=== PATIENT | female | born 1995 | race African-American/Black ===

== ENCOUNTER 2023-02-01 12:01 | Emergency (ER) | payer MEDICAID, SELFPAY ==
--- NOTE | ~2023-02-01 | US_ITS ---
EXAMINATION: US ABDOMEN LIMITED CLINICAL INFORMATION: Right upper quadrant pain.. COMPARISON: None available. TECHNIQUE: Real-time imaging of the right upper quadrant abdominal viscera. FINDINGS: PANCREAS: Normal. LIVER: Normal. The liver is normal in size. The liver contour is normal. Parenchymal echogenicity is normal. No focal hepatic lesion. There is no intrahepatic biliary duct dilatation seen. GALLBLADDER: Normal. The gallbladder is physiologically distended without evidence of stones, sludge, polyps, wall thickening or pericholecystic fluid. COMMON BILE DUCT: Normal in caliber measuring 0.17 cm in diameter. RIGHT KIDNEY: Normal. No hydronephrosis. No renal calculi or focal parenchymal lesions. The kidney measures 9.9 cm in maximum dimension. FREE FLUID: None. US/US abdomen limited IMPRESSION: No gallstones or biliary dilatation.
[2023-02-01 12:08] VITALS: BP 108/70; PULSE 56; O2SAT 99
[2023-02-01 13:20] VITALS: BP 143/80; PULSE 84; RESP 16; TEMP 36.7; O2SAT 100; BMI 35.1
--- NOTE | 2023-02-01 13:21 | ED.GENADULT ---
HPI - General Adult General Chief complaint: Abdominal Pain Stated complaint: ABD PAIN HALF HOUR S/P HOT SAUCE INTAKE Time Seen by Provider: 02/01/23 19:48 Source: patient and RN notes reviewed Mode of arrival: ambulatory Limitations: no limitations History of Present Illness [facility] narrative: This is a 27-year-old female, with no known past medical history, presenting to the emergency department with complaints of epigastric pain since today. Patient states that after eating a very spicy meal, she developed a burning sensation in her epigastrium. She states that the pain has been constant and nonradiating. She reports associated nausea. No chest pain or shortness of breath. Denies history of similar symptoms before. She states that her diet consists of very spicy foods on a daily basis. Denies fevers, chills, diarrhea or constipation. No other complaints or concerns at this time. MD complaint: Epigastric pain Onset (ago): day(s) Radiation: non-radiation Severity: moderate Quality: burning Pain Consistency: constant Relieving factors: none Exacerbating factors: none Associated symptoms: denies other symptoms Treatments prior to arrival: none Related Data Previous Rx's Medication Instructions Recorded aluminum-mag hydroxide-simethicone 10 ml PO QID PRN indigestion #300 02/01/23 200 mg-200 mg-20 mg/5 mL oral susp mL (Maalox Advanced) Allergies Allergy/AdvReac Type Severity Reaction Status Date / Time No Known Allergies Allergy Verified 02/01/23 13:22 Review of Systems Review of Systems: Yes all other systems are reviewed and are negative Constitutional: Constitutional: Reports as per [facility] Social History Social History Advance Directives: No Advance Directives Information Provided: No Physical Exam ED Vital Signs: Vital Signs - 24 hr 02/01/23 13:20 Temperature 98.0 F Pulse Rate 84 Respiratory Rate 16 Blood Pressure 143/80 H Pulse Oximetry 100 Oxygen Delivery Method Room Air BMI result Body Mass Index 35.1 Const General: cooperative, comfortable and no acute distress Orientation/consciousness: patient oriented x3 Limitations: no limitations HENMT Head: Yes normal to inspection, Yes normocephalic and Yes atraumatic Ears: hearing grossly normal bilaterally General nose exam: Normal external nose present Face and sinus: Yes normal facial exam Mouth: Normal oral and palatal mucosa present, oropharynx normal and moist mucous membranes Throat: Yes posterior oropharynx normal Eyes General: appearance normal, both eyes and all related structures Eyelids: Yes eyelids normal Conjunctivae: conjunctivae normal Sclerae: sclerae normal Pupils: Equal, round and reactive pupils present EOM: EOMs intact bilaterally Neck Neck: Yes normal visual inspection, Yes full ROM and Yes no lymphadenopathy Lymphatic: no lymphadenopathy noted Chest Chest palpation & inspection: normal inspection of the chest Resp Effort & Inspection: normal respiratory effort and able to speak in complete sentences Auscultation: clear to auscultation bilaterally, no crackles, no rales, no rhonchi and no wheezes Cardio Rate: regular rate Rhythm: regular rhythm Heart sounds: S1 normal heart sound present and S2 normal heart sound present GI Other: Abdomen is soft, with mild tenderness to palpation in the epigastrium. No rebound or guarding. Normoactive bowel sounds present in all 4 quadrants. Inspection: Yes normal to inspection Skin General skin exam: no rashes or lesions noted Trauma: no lacerations or abrasions Wounds: no wounds Neuro General: patient oriented x3 and moves all extremities Cranial nerves: Yes Equal, round and reactive pupils present Extrem General: Yes normal to inspection Right upper extremity: normal to inspection Left upper extremity: normal to inspection Right lower extremity: normal to inspection Left lower extremity: normal to inspection Course Course Course Narrative: This is an RME: Additional HPI, ROS, PE not included below will be deferred to primary provider. 27 yo female presents w/ RUQ/epigastric pain X few hours s/p eating hot sauce. Reports her stomach pain feels like contractions reports a/c nausea. Plan- labs, ruq us Medications Administered Discontinued Medications Generic Name Dose Route Start Last Admin Trade Name Antony PRN Reason Stop Dose Admin Al Hydroxide/Mg Hydroxide 30 ml 02/01/23 20:05 02/01/23 20:21 Magnesium Hydrox/Alum Hydrox 30 Ml Oral.Susp PO 02/01/23 20:06 30 ml ONCE ONE Administration Lidocaine HCl 15 ml 02/01/23 20:05 02/01/23 20:22 Lidocaine Hcl Viscous 2 % 15 Ml Solution MUCOUS MEM 02/01/23 20:06 15 ml ONCE ONE Administration Medical Decision Making Medical Decision Making MDM Narrative: 27-year-old female presenting to the emergency department for evaluation of epigastric burning sensation since eating a spicy meal this afternoon. She states that the pain has been constant does not radiate. No shortness of breath or chest pain. On arrival, patient mildly hypertensive at 143/80. All other vital signs within normal limits. Labs were obtained, no leukocytosis, stable H&H, chemistry within normal limits. Abdomen ultrasound is negative. Differential diagnoses include gastritis, gastroenteritis, cholecystitis, cholangitis. Given workup today, symptoms consistent with gastritis, patient medicated with GI cocktail however immediately after she states that she had to go as her ride was going to leave her. Educated the importance of avoiding spicy and greasy food over the next month. Given prescription for Maalox. Given return precautions. Patient understands and agrees with plan. Patient stable for discharge. Differential Diagnosis Differential Diagnoses: The differential diagnosis associated with the presentation includes See above Admission/Observation Consideration of admission/observation: Escalation of care including admission/observation considered Patient would have been admitted to the hospital had her work up had any findings where hospital admission was appropriate and her clinical presentation warranted hospital admission. Lab Data MDM Lab Attestation statement: I reviewed the patient's lab results. 02/01/23 13:39 02/01/23 13:39 Labs: Lab Results 02/01/23 Range/Units 13:39 WBC 7.1 (4.8-10.8) X10*3/uL RBC 4.27 (4.20-5.50) X10*6/uL Hgb 12.2 (12.0-16.0) g/dl Hct 36.7 L (37.0-47.0) % MCV 85.9 (80.0-98.0) fL MCH 28.6 (27.0-33.0) pg MCHC 33.2 (31.0-35.0) g/dl RDW 13.4 (11.0-16.0) % Plt Count 226 (160-400) X10*3/uL MPV 10.5 (9.4-12.3) fL Immature Gran % (Auto) 0.3 (0.0-0.4) % Neut % (Auto) 66.5 (45-73) % Lymph % (Auto) 25.8 (20-40) % [place] % (Auto) 4.4 (2-11) % Eos % (Auto) 2.4 (0-4) % Baso % (Auto) 0.6 (0-2) % Lymph # (Auto) 1.8 (1.2-4.9) X10*3/uL [place] # (Auto) 0.3 (0.1-1.2) X10*3/uL Eos # (Auto) 0.2 (0.0-0.4) X10*3/uL Baso # (Auto) 0.0 (0.0-0.2) X10*3/uL Abs Immat Gran (auto) 0.02 (0.00-0.03) X10*3/uL Absolute Neuts (auto) 4.7 (2.0-8.3) x10*3/uL Absolute Nucleated RBC 0.000 (0.0-0.012) X10*3/uL Nucleated RBC % (auto) 0.0 (0.0-0.2) /100WBC Sodium 139 (135-145) mmol/L Potassium 3.8 (3.3-5.1) mmol/L Chloride 108 (96-108) mmol/L Carbon Dioxide 21 L (22-29) mmol/L Anion Gap 14 (12-20) BUN 11 (9-16) mg/dL Creatinine 0.73 (0.5-1.4) mg/dL Estim Creat Clear Calc 118.6 Estimated GFR > 60 Random Glucose 84 (60-115) mg/dL Calcium 9.8 (8.4-10.2) mg/dL Magnesium 2.3 (1.6-2.6) mg/dL Total Bilirubin 0.4 (0.0-1.0) mg/dL AST 18 (5-31) U/L ALT 13 (0-31) U/L Alkaline Phosphatase 55 (39-117) U/L Total Protein 7.8 (6.5-8.0) g/dL Albumin 4.5 (3.5-5.0) g/dL Lipase 51 (8-78) U/L Beta HCG, Quant < 2 mIU/mL Radiology Impression Discussion of test interpretation with radiology: I have reviewed the radiologist's reading. Radiologist Impression: EXAMINATION: US ABDOMEN LIMITED CLINICAL INFORMATION: Right upper quadrant pain.. COMPARISON: None available. TECHNIQUE: Real-time imaging of the right upper quadrant abdominal viscera. FINDINGS: PANCREAS: Normal. LIVER: Normal. The liver is normal in size. The liver contour is normal. Parenchymal echogenicity is normal. No focal hepatic lesion. There is no intrahepatic biliary duct dilatation seen. GALLBLADDER: Normal. The gallbladder is physiologically distended without evidence of stones, sludge, polyps, wall thickening or pericholecystic fluid. COMMON BILE DUCT: Normal in caliber measuring 0.17 cm in diameter. RIGHT KIDNEY: Normal. No hydronephrosis. No renal calculi or focal parenchymal lesions. The kidney measures 9.9 cm in maximum dimension. FREE FLUID: None. US/US abdomen limited IMPRESSION: No gallstones or biliary dilatation. Dictated By: Zackary Osullivan Discharge Plan Discharge Clinical Impression: Gastritis Patient Disposition: Home, Self-Care Instructions: Gastritis (ED), Diet for Stomach Ulcers and Gastritis (ED) Additional Instructions: You likely have something called gastritis. This is inflammation of your stomach lining. This can be caused by eating spicy foods. Please take to a bland diet, a diet with dose, rice, applesauce, bananas, can help with your symptoms. Drink plenty of fluids get plenty of rest. Follow-up with your primary care physician. If any new or worsening symptoms occur including but not limited to chest pain, shortness of breath, worsening abdominal pain, nausea, vomiting or diarrhea, please return for re-evaluation. Prescriptions: New alum-mag hydroxide-simeth [Maalox Advanced] 200-200-20 mg/5 mL suspension 10 ml PO QID PRN (Reason: indigestion) Qty: 300 0RF Rx Instructions: administer between meals and at bedtime Stand Alone Forms: Work/School Release
[2023-02-01 13:47] LABS: MANUAL DIFF FLAG NO
[2023-02-01 13:53] LABS: Basophils Percent Auto 0.6 % (0-2); Eosinophils Absolute Auto 0.2 X10*3/uL (0.0-0.4); Eosinophils Percent Auto 2.4 % (0-4); Hematocrit 36.7 % (37.0-47.0); Hemoglobin 12.2 g/dl (12.0-16.0); Imm Gran Abs Auto 0.02 X10*3/uL (0.00-0.03); Imm Gran Pct Auto 0.3 % (0.0-0.4); Lymphocytes Absolute Auto 1.8 X10*3/uL (1.2-4.9); Lymphocytes Percent Auto 25.8 % (20-40); Mean Corpuscular HGB Conc 33.2 g/dl (31.0-35.0); Mean Corpuscular Hemoglobin 28.6 pg (27.0-33.0); Mean Corpuscular Volume 85.9 fL (80.0-98.0); Mean Platelet Volume 10.5 fL (9.4-12.3); Monocytes Absolute Auto 0.3 X10*3/uL (0.1-1.2); Monocytes Percent Auto 4.4 % (2-11); Neutrophils Absolute Auto 4.7 x10*3/uL (2.0-8.3); Neutrophils Percent Auto 66.5 % (45-73); Platelet Count 226 X10*3/uL (160-400); Red Blood Count 4.27 X10*6/uL (4.20-5.50); Red Cell Distribution Width 13.4 % (11.0-16.0); White Blood Count 7.1 X10*3/uL (4.8-10.8)
[2023-02-01 14:13] LABS: Alanine Aminotransferase 13 U/L (0-31); Albumin Level 4.5 g/dL (3.5-5.0); Alkaline Phosphatase 55 U/L (39-117); Anion Gap 14 (12-20); Aspartate Amino Transferase 18 U/L (5-31); Bilirubin Total 0.4 mg/dL (0.0-1.0); Blood Urea Nitrogen 11 mg/dL (9-16); Calcium 9.8 mg/dL (8.4-10.2); Carbon Dioxide 21 mmol/L (22-29); Chloride 108 mmol/L (96-108); Creatinine Clr Calc Pharmacy 118.6; Estimated Glomerular Filt Rate > 60; Glucose Random 84 mg/dL (60-115); HCG Quantitative < 2 mIU/mL; Lipase 51 U/L (8-78); Magnesium 2.3 mg/dL (1.6-2.6); Potassium 3.8 mmol/L (3.3-5.1); Sodium 139 mmol/L (135-145); Total Protein 7.8 g/dL (6.5-8.0)
[2023-02-01] MEDS: Magnesium Hydrox/Alum Hydrox 30 ML ORAL.SUSP PO (20:21)
[2023-02-01] MEDS: Lidocaine HCl Viscous 2 % 15 ML SOLUTION MUCOUS MEM (20:22)
== END 2023-02-01 20:54 | disposition home or self-care (01) ==
PROVIDERS: Physician Assistant; Emergency Provider Internal Medicine
DX: K29.70 Gastritis, unspecified, without bleeding (principal)
CPT/HCPCS: 36415; 76705; 80053; 83690; 83735; 84702; 85025; 99282; 99283; 99284